=== PATIENT | female | born 1985 ===

== ENCOUNTER → 2018-11-28 | Outpatient (CLI) | payer OTHER ==
--- NOTE | 2018-11-28 08:37 | WOMENS IMAGING REPORT ---
EXAM DESCRIPTION: TRANSVAGINAL ULTRASOUND COMPLETED DATE/TIME: 11/28/2018 7:25 am REASON FOR STUDY: PELVIC PAIN IN FEMALE;R10.2 R10.2 PELVIC AND PERINEAL PAIN COMPARISON: None. TECHNIQUE: Dynamic and static grayscale images acquired of the pelvis via transvaginal approach and recorded on PACS. Additional selected color Doppler and spectral images recorded. LIMITATIONS: None. FINDINGS: UTERUS: Contour normal. No mass. Uterus is 10 x 5.6 x 4.2 cm in size. ENDOMETRIAL STRIPE: No focal or generalized thickening. No masses. Endometrial stripe 12 mm in thick ness. CERVIX: No nabothian cysts. Closed. RIGHT OVARY AND DOPPLER: Normal size right ovary 3.4 x 2.9 x 2.5 cm. No worrisome masses. Normal li rial vascular flow without evidence for torsion. LEFT OVARY AND DOPPLER: Normal size, 3.8 x 3 x 2.9 cm in size. 2.3 cm hemorrhagic cyst left ovary. N ormal arterial vascular flow without evidence for torsion. FREE FLUID: None noted. OTHER: No other significant finding. IMPRESSION: 2.3 cm hemorrhagic cyst left ovary. Otherwise unremarkable endovaginal pelvic ultrasound. TECHNICAL DOCUMENTATION: JOB ID: [id number] [email or web address]- All Rights Reserved Rev-04/08 Reading location - IP/workstation name: [facility]
== END ==
LOC: WI 06:55
PROVIDERS: ATTEND Nurse Practitioner Family
DX: N83.202 Unspecified ovarian cyst, left side (principal); R10.2 Pelvic and perineal pain
CPT/HCPCS: 76830